=== PATIENT | female | born 1995 | race Caucasian/White ===

== ENCOUNTER → 2020-04-19 15:44 | Outpatient (CLI) | payer OTHER, SELFPAY ==
[2020-04-23 03:07] LABS: Chlamydia By Nucleic Acid AMP Negative (Negative)
[2020-04-23 06:29] LABS: Gonococcus By Nucleic Acid AMP Negative (Negative)
[2020-04-25 16:23] LABS: HPV Reflexed? NOT INDICATED
== END ==
PROVIDERS: Visit Provider Student in an Organized Health Care Education/Training Program
DX: Z32.01 Encounter for pregnancy test, result positive (principal)
CPT/HCPCS: 87491; 87591; 88175; G0145

== ENCOUNTER → 2020-04-26 14:52 | Outpatient (CLI) | payer OTHER, SELFPAY ==
[2020-04-26 16:09] LABS: Absolute Lymphocyte Count 1.88 X10^3/uL (0.83-4.51); Absolute Neutrophil Count 6.8 X10^3/uL (2.0-7.7); Basophil# 0.05 X10^3/uL; Basophil% 0.5 % (0-1); Eosinophil# 0.25 X10^3/uL; Eosinophils% 2.5 % (0-5); Hematocrit 38.4 % (37-47); Lymphocyte # 1.88 X10^3/ul (4.0); Mean Corp Hgb Conc 33.9 g/dL (32-36); Mean Corpuscular Hgb 28.8 pg (27.0-32.0); Mean Corpuscular Volume 85.1 fL (81-99); Mean Platelet Vol. 10.7 fl (6.2-12.0); Monocyte# 0.84 X10^3/uL; Monocyte% 8.5 % (0-10); NRBC Flagged by Analyzer 0 % (0-5); Neutrophil # 6.82 X10^3/uL (2.7-7.7); Neutrophil % 69.2 % (47-70); Platelet Count 271 K/mm3 (150-450); RBC Distribution Width CV 11.5 % (11.6-14.6); RBC Distribution Width SD 35.7 fl (35.1-43.9); Red Blood Count 4.51 M/mm3 (4.2-5.4); White Blood Count 9.9 K/mm3 (4.4-11.0)
[2020-04-29 09:29] LABS: HIV - WCH Non-Reactive (Nonreactive); Hepatitis B Surface Antigen Non-Reactive (Nonreactive); Hepatitis C Antibody Non-Reactive (Nonreactive); Rubella IgG Non-Reactive (Nonreactive)
[2020-05-02 02:50] LABS: Prenatal RPR NONREACTIVE (NONREACTIVE)
== END ==
PROVIDERS: Visit Provider Student in an Organized Health Care Education/Training Program
DX: Z34.81 Encounter for supervision of other normal pregnancy, first trimester (principal)
CPT/HCPCS: 36415; 85025; 86703; 86762; 86803; 87086; 87088; 87340

== ENCOUNTER → 2020-08-13 10:21 | Outpatient (CLI) | payer OTHER, SELFPAY ==
[2020-08-13 11:07] LABS: Hematocrit 32.6 % (37-47); Hemoglobin 10.7 g/dL (12.0-15.0); Mean Corp Hgb Conc 32.8 g/dL (32-36); Mean Corpuscular Hgb 30.1 pg (27.0-32.0); Mean Corpuscular Volume 91.6 fL (81-99); Mean Platelet Vol. 9.9 fl (6.2-12.0); Platelet Count 236 K/mm3 (150-450); RBC Distribution Width CV 12.8 % (11.6-14.6); RBC Distribution Width SD 42.4 fl (35.1-43.9); Red Blood Count 3.56 M/mm3 (4.2-5.4); White Blood Count 9.8 K/mm3 (4.4-11.0)
[2020-08-13 11:26] LABS: Glucose Challenge Gest 1H 50g 64 mg/dL (70-140)
== END ==
PROVIDERS: Visit Provider Student in an Organized Health Care Education/Training Program
DX: Z34.82 Encounter for supervision of other normal pregnancy, second trimester (principal)
CPT/HCPCS: 36415; 82950; 85027

== ENCOUNTER → 2020-10-01 | Outpatient (CLI) | payer SELFPAY ==
[2021-10-01 14:23] LABS: Amphetamine Urine VISTA NEGATIVE (<1000 ng/mL); Barbiturate Urine VISTA NEGATIVE (< 200 ng/mL); Benzodiazepine Urine VISTA NEGATIVE (< 200 ng/mL); Cocaine Urine VISTA NEGATIVE (< 300 ng/mL); Ecstacy Urine VISTA NEGATIVE (< 500 ng/mL); Methadone Urine VISTA NEGATIVE (< 300 ng/mL); PCP Urine VISTA NEGATIVE (< 25 ng/mL); Protein, Urine (Random) < 6.0 mg/dL (<11.9); THC Urine VISTA NEGATIVE (< 50 ng/mL); Vista UDS pH Range 6
[2021-10-04 11:08] LABS: Chlamydia By Nucleic Acid AMP Negative (Negative)
[2021-10-04 11:25] LABS: Gonococcus By Nucleic Acid AMP Negative (Negative)
== END | disposition home or self-care (01) ==
LOC: LABSPEC 10-02 06:32
PROVIDERS: PCP Family Medicine; Referring Provider Obstetrics & Gynecology; Visit Provider Obstetrics & Gynecology
DX: O09.90 Supervision of high risk pregnancy, unspecified, unspecified trimester (principal); O09.299 Supervision of pregnancy with other poor reproductive or obstetric history, unspecified trimester
CPT/HCPCS: 80307; 82570; 84156; 87086; 87088; 87491; 87591

== ENCOUNTER → 2020-11-05 11:17 | Outpatient (CLI) | payer OTHER, SELFPAY | PROVIDERS: Visit Provider Student in an Organized Health Care Education/Training Program | DX: Z36.85 Encounter for antenatal screening for Streptococcus B (principal) | CPT/HCPCS: 87081 ==

== ENCOUNTER 2020-12-05 11:30 | Inpatient (IN) | payer OTHER, SELFPAY ==
[2020-12-05] VITALS (15 sets, daily range): BP systolic 93–125; BP diastolic 52–70; PULSE 78–98; TEMP 36.7–37.7; O2SAT 96–99; BMI 27.3
[2020-12-05] MEDS: miSOPROStol 25 MCG TABLET PO (12:00)
[2020-12-05 12:04] LABS: Absolute Lymphocyte Count 1.67 X10^3/uL (0.83-4.51); Absolute Neutrophil Count 8.3 X10^3/uL (2.0-7.7); Basophil# 0.05 X10^3/uL; Basophil% 0.4 % (0-1); Eosinophil# 0.25 X10^3/uL; Eosinophils% 2.1 % (0-5); Hematocrit 35.9 % (37-47); Hemoglobin 12.1 g/dL (12.0-15.0); Lymphocyte # 1.67 X10^3/ul (0.83-4.51); Lymphocyte % 14.1 % (19-41); Mean Corp Hgb Conc 33.7 g/dL (32-36); Mean Corpuscular Hgb 29.7 pg (27.0-32.0); Mean Platelet Vol. 10.5 fl (6.2-12.0); Monocyte# 1.44 X10^3/uL; Monocyte% 12.2 % (0-10); NRBC Flagged by Analyzer 0 % (0-5); Neutrophil # 8.25 X10^3/uL (2.7-7.7); Neutrophil % 69.7 % (47-70); Platelet Count 198 K/mm3 (150-450); RBC Distribution Width CV 12.4 % (11.6-14.6); RBC Distribution Width SD 39.4 fl (35.1-43.9); Red Blood Count 4.08 M/mm3 (4.2-5.4); White Blood Count 11.8 K/mm3 (4.4-11.0)
[2020-12-05] MEDS: Lactated Ringers 1,000 ML 50 ML IV (17:10)
[2020-12-05] MEDS: Oxytocin 30 units/NS 500 ml 30 UNITS/500 ML IV.SOLN IV (17:10)
--- NOTE | 2020-12-05 18:07 | PCM.HP.OB ---
HPI - General General Date of Admission: 12/05/20 HPI Narrative 24-year-old G1, P0 at 41/1 weeks, UGO 11/27/2020 by LMP, admitted for induction of labor. Denies leaking of fluid, regular contractions, vaginal bleeding. Reports movement. Denies headache, vision changes, chest pain, shortness of breath, nausea or vomiting, fevers or chills, diarrhea or constipation. complicated by: Rubella nonimmune. PFSH PFSH Home Medications ferrous sulfate [iron] 325 mg PO DAILY 12/05/20 [History Last Taken 12/05/20] magnesium sulfate mg PO 12/05/20 [History Last Taken 12/05/20] uqsuuweq-[id number]-FA [] tab PO 12/05/20 [History Last Taken 12/05/20] Allergy/AdvReac Type Severity Reaction Status Date / Time No Known Allergies Allergy Verified 12/05/20 11:45 Social History (Updated 12/05/20 @ 18:[address] Elsie Siddiqui, DO) Smoking Status: Never smoker alcohol intake: never substance use type: does not use History 1 Elective abortions Hx Para 0 Spontaneous abortions Hx # Term Pregnancies Ectopic pregnancies Hx # Pregnancies Multiple births # of living children NST FHR Rate Baby A Baseline: 135 Variability:: Moderate Accelerations:: 15 x 15 Decelerations:: None NST Reactive:: Yes FHR Category:: Category I ROS Constitutional Constitutional: Reports systems reviewed and no addt'l complaints, except as documented Eyes Eyes: Reports systems reviewed and no addt'l complaints, except as documented ENT HEENT: Reports systems reviewed and no addt'l complaints, except as documented Cardiovascular Cardiovascular: Reports systems reviewed and no addt'l complaints, except as documented Respiratory/Chest Respiratory/Chest: Reports systems reviewed and no addt'l complaints, except as documented Gastrointestinal Gastrointestinal: Reports systems reviewed and no addt'l complaints, except as documented Genitourinary Genitourinary: Reports systems reviewed and no addt'l complaints, except as documented Musculoskeletal Musculoskeletal: Reports systems reviewed and no addt'l complaints, except as documented Integumentary Integumentary: Reports systems reviewed and no addt'l complaints, except as documented Neurologic Neurologic: Reports systems reviewed and no addt'l complaints, except as documented Psychiatric Psychiatric: Reports systems reviewed and no addt'l complaints, except as documented Endocrine Endocrinology: Reports systems reviewed and no addt'l complaints, except as documented Hematologic/Lymphatic Hematologic/Lymphatic: Reports systems reviewed and no addt'l complaints, except as documented Allergic/Immunologic Allergic/Immunologic: Reports systems reviewed and no addt'l complaints, except as documented Vital Signs Vital Signs Vital Signs: 12/05/20 11:50 12/05/20 11:51 12/05/20 11:57 Temperature 99.8 F H Temperature Source Temporal Pulse Rate 98 91 Blood Pressure 125/70 H BP Systolic 125 BP Diastolic 70 Pulse Ox 96 12/05/20 15:11 Temperature Temperature Source Pulse Rate 93 Blood Pressure 123/60 H BP Systolic 123 BP Diastolic 60 Pulse Ox Weight Weight: 72.121 kg Body Mass Index (BMI) 27.3 Physical Exam Const alert, oriented x3 and no apparent distress HEENT normocephalic Head and Scalp: atraumatic Eyes PERRL Resp normal respiratory effort and clear to auscultation bilaterally Cardio regular rate and regular rhythm GI normal to inspection, nondistended, normoactive bowel sounds Inspection: gravid Extremity normal to inspection and no pedal edema Neuro no focal motor deficits and no sensory deficits noted Psych mental status grossly normal and affect normal Labs Labs Labs: Blood Type B POSITIVE Antibody Screen NEGATIVE Hct 35.9 % (37-47) L Hgb 12.1 g/dL (12.0-15.0) Rubella IgG Antibody Non-Reactive (Nonreactive) Hep Bs Antigen Non-Reactive (Nonreactive) Neisseria gonorrhoeae DNA (ANNA) Negative (Negative) HIV 1&2 Antibody Non-Reactive (Nonreactive) Glucose 1 Hr 50 gm 64 mg/dL (70-140) L Assessment & Plan (1) Encounter for induction of labor: PLAN: 24-year-old G1 at 41/1 weeks admitted for induction of labor. Complicated by: Rubella nonimmune. For vaccination . Started with Cytotec and now on Pitocin. Routine orders. (2) Rubella non-immune status, antepartum:
[2020-12-05] MEDS: Lactated Ringers 500 ML 999 ML IV (23:13)
[2020-12-06] VITALS (46 sets, daily range): BP systolic 93–129; BP diastolic 52–85; PULSE 68–100; RESP 18; TEMP 36.2–37.8; O2SAT 97–100
[2020-12-06] MEDS: fentaNYL 100 MCG/2 ML Ampul IV (06:05)
[2020-12-06] MEDS: Lactated Ringers 500 ML 999 ML IV ×3 (06:05→13:50)
[2020-12-06] MEDS: Lactated Ringers 1,000 ML 200 ML IV (11:00)
[2020-12-06] MEDS: fentaNYL-bupivacaine (epidural) 100 ML BAG EPIDURAL (11:01)
[2020-12-06] MEDS: Oxytocin 30 units/NS 500 ml 30 UNITS/500 ML IV.SOLN 334 UNITS IV (15:55)
--- NOTE | 2020-12-06 16:41 | EX.PCM.OBRPT ---
Vaginal Delivery Maternal Presentation Maternal Presentation: Elective Induction Operative Information Date of Procedure: 12/06/20 Pre-Operative Diagnosis: Donovan intrauterine Post-Operative Diagnosis: Donovan intrauterine Surgery / Procedure Performed: Spontaneous Vaginal Delivery Type of Anesthesia: Epidural Estimated Blood Loss: 500cc Findings Description of Procedure: Spontaneous vaginal delivery of viable female. No nuchal cord. Baby to mom. Cord clamped and cut. Spontaneous delivery of placenta. Bilateral labial lacerations repaired in the usual fashion. Bilateral sulcal tears repaired in the usual fashion. Hemostatic. EBL 500cc. (1 minute): 8 (5 minute): 9
[2020-12-06] MEDS: Acetaminophen 500 MG Tablet 1000 MG PO (17:31)
[2020-12-06] MEDS: 0.9% Saline Lock 10 ML Syringe IV (18:40)
--- NOTE | 2020-12-06 20:35 | NURSING ---
BL labial and BL succal tear noted.
[2020-12-06] MEDS: Ibuprofen 600 MG Tablet PO (21:14)
--- NOTE | 2020-12-06 23:46 | NURSING ---
Report given to Tosin VIZCARRA, taking over pt and care at this time.
[2020-12-07] VITALS (9 sets, daily range): BP systolic 107–120; BP diastolic 54–80; PULSE 72–93; RESP 14–18; TEMP 36.2–36.9; O2SAT 97–99
[2020-12-07] MEDS: Acetaminophen 500 MG Tablet 1000 MG PO ×3 (00:13→16:28)
--- NOTE | 2020-12-07 01:29 | NURSING ---
bilateral sulcul and labial tears
[2020-12-07] MEDS: Ibuprofen 600 MG Tablet PO ×2 (06:22→12:50)
[2020-12-07] MEDS: Dibucaine 30 GM Tube 1 APPLIC TOPICAL (09:43)
--- NOTE | 2020-12-07 09:43 | PCM.PN.OB ---
Subjective Subjective day 1. Feeling well. Bottom is sore, mostly tailbone. Lochia minimal. Breast-feeding with some soreness. this morning. Has seen this morning. Objective Data Objective Data Vital Signs: Vital Signs Temp Pulse Resp BP Pulse Ox 97.1 F L 85 16 107/59 L 98 12/07/20 08:26 12/07/20 08:26 12/07/20 08:26 12/07/20 08:26 12/07/20 08:26 Oxygen Delivery Method Room Air Weight: 72.121 kg Body Mass Index (BMI) 27.3 Intake & Output: Intake and Output for Last 24 Hours 12/05/20 12/06/20 12/07/20 23:59 23:59 23:59 Intake Total 1223.50 / 1223.50 3701.50 / 3701.50 Output Total 750 / 1150 2325 / 2325 400 / 400 Balance 473.50 / 73.50 1376.50 / 1376.50 -400 / -400 Lab / Micro Data Result Diagrams: 12/05/20 11:45 Physical Exam Const alert, oriented x3 and no apparent distress HEENT normocephalic Head and Scalp: atraumatic Neck full ROM Resp normal respiratory effort Cardio regular rate GI normal to inspection, nondistended, normoactive bowel sounds GI Narrative: Uterus 2 cm below umbilicus Extremity normal to inspection and no pedal edema Skin no rashes or lesions noted Psych mental status grossly normal and affect normal Assessment & Plan (1) state: PLAN: 24-year-old day 1 status post . Patient recovering well. Breast-feeding. Rubella nonimmune, MMR vaccine offered, will need follow-up with primary care. Home today. (2) Vaginal delivery:
--- NOTE | 2020-12-07 09:45 | PCM.DC ---
Discharge Instructions Diet Discharge Diet: No restrictions Activity Discharge Activity: Return to Normal Activity and May Shower May resume sexual activity in: 4-6 weeks Lifting Restrictions: 20-25 lbs Dressing / Incision Call your doctor if you observe: Fever of 101 or Higher, Using more than 1 pad per hour, Shortness of breath, Dizziness, Fainting spells, Swelling in the ankles, Chest pain and Calf discomfort Cleanse incision/area with: Soap & Water Follow Up Care Please Follow Up With: Elsie Siddiqui DO When: 2 week Telehealth, 6 week Test Results: Test results from this visit will be discussed in further detail at your follow-up appointment, if applicable. Discharge Plan Admission Admit Date/Time: 12/05/20 11:30 Primary Reason for Your Visit: Labor Attending Provider: Elsie Siddiqui Primary Care Provider: Avtar Wheeler Instructions Patient Instructions: After a Vaginal , Breastfeed Holds, After Delivery [place] Concerns, Breast Care After , , : Caring for Yourself Discharge Orders/Prescriptions Prescriptions: No Action ferrous sulfate [iron] 325 mg (65 mg iron) Tablet 325 mg PO DAILY RF: 0 1 mg Tablet PO RF: 0 magnesium sulfate 100 mg Capsule PO RF: 0 Referrals / Follow Up: Avtar Wheeler DO [Primary Care Provider] - Disposition Disposition (needs filled in before D/C Order can be placed): Home, Self Care
[2020-12-07] MEDS: Senna/Docusate Sodium 1 Tablet PO (12:50)
--- NOTE | 2020-12-07 13:13 | NURSING ---
Report given to Mari Arriaza RN. She will assume care of patient at this time.
== END 2020-12-07 18:55 | disposition home or self-care (01) | DRG 807 ==
PROVIDERS: Obstetrics & Gynecology; Admitting Provider Student in an Organized Health Care Education/Training Program; PCP Family Medicine; Referring Provider Student in an Organized Health Care Education/Training Program; Visit Provider Student in an Organized Health Care Education/Training Program
DX: O70.0 First degree perineal laceration during delivery (principal); Z37.0 Single live birth; Z3A.41 41 weeks gestation of pregnancy
CPT/HCPCS: 59025; 59050; 85025; 86850; 86900; 86901; 99218; J7120; A4216; G0378

== ENCOUNTER → 2021-11-21 | Outpatient (CLI) | payer SELFPAY ==
--- NOTE | 2021-11-21 12:30 | US_ITS ---
STUDY: SECOND AND THIRD TRIMESTER OBSTETRICAL ULTRASOUND REASON FOR EXAM: Female, 25 years old anatomy LMP: 07/11/2021 TECHNIQUE: Transabdominal and Transvaginal TECHNICAL QUALITY: Adequate. PRIOR ULTRASOUND: None. FINDINGS: There is a single intrauterine fetus. The fetus is in a breech presentation. There is demonstrated cardiac activity with a heart rate of 155 bpm. There is a normal amniotic fluid volume. The largest amniotic fluid pocket measures 7.7 cm. The amniotic fluid index (MARIO) is cm. The placenta is anterior in location and is not low lying. There are Grade 0 placental changes. The cervix measures 4.0 cm in length. BIOMETRY: BPD: 4.4 cm: 19 weeks, 1 days HC: 16.0 cm: 18 weeks, 5 days AC: 13.3 cm: 18 weeks, 5 days FL: 2.8 cm: 18 weeks, 4 days CI: 79.72 FL/BPD: 65.18 FL/HC: 17.76 FL/AC: 21.38 HC/AC: 1.20 age by current US: 18 weeks, 6 days. UGO by current US: 04/18/2022. Estimated weight: 258 grams, +/- 39 grams, 34 %. Age by LMP: 19 weeks, 0 days. UGO by LMP: 04/17/2022. ANATOMY: Gender: Male Cranium: Normal lateral ventricles. Normal choroid plexus. Normal cerebellum. Normal cisterna magna. Normal face, nose and lips. Chest: Normal 4-chamber heart. Abdomen/Pelvis: Normal diaphragm. Normal stomach. Normal abdominal wall. Normal cord insertion. Normal 3 vessel cord. Normal kidneys. Normal bladder. Spine: Normal cervical spine. Normal thoracic spine. Normal lumbar spine. Normal sacrum. Extremities: Normal bilateral upper extremities. Normal bilateral lower extremities. US/OB Anatomy Scan IMPRESSION: Living intrauterine of 18 weeks 6 days as described above. Electronically Signed: Ronnie Scott MD at 7:11 EDT , Refer to transabdominal and transvaginal OB ultrasound. Electronically Signed: Ronnie Scott MD at 7:12 EDT ,
== END | disposition home or self-care (01) ==
LOC: OPUS 12:29
PROVIDERS: PCP Family Medicine; Referring Provider Obstetrics & Gynecology; Visit Provider Obstetrics & Gynecology
DX: O09.90 Supervision of high risk pregnancy, unspecified, unspecified trimester (principal); Z3A.00 Weeks of gestation of pregnancy not specified
CPT/HCPCS: 76805; 76817

== ENCOUNTER → 2022-01-26 | Outpatient (CLI) | payer SELFPAY ==
[2022-01-26 14:19] LABS: Glucose Challenge Gest 1H 50g 120 mg/dL (70-140)
== END | disposition home or self-care (01) ==
LOC: LAB 13:21
PROVIDERS: PCP Family Medicine; Referring Provider Obstetrics & Gynecology; Visit Provider Obstetrics & Gynecology
DX: O09.90 Supervision of high risk pregnancy, unspecified, unspecified trimester (principal); Z3A.00 Weeks of gestation of pregnancy not specified
CPT/HCPCS: 36415; 82950; 86900; 86901

== ENCOUNTER → 2022-03-26 | Outpatient (CLI) | payer SELFPAY | END | disposition home or self-care (01) | LOC: LABSPEC 14:41 | PROVIDERS: PCP Family Medicine; Visit Provider Obstetrics & Gynecology | DX: O09.90 Supervision of high risk pregnancy, unspecified, unspecified trimester (principal); Z3A.00 Weeks of gestation of pregnancy not specified | CPT/HCPCS: 87081 ==

== ENCOUNTER 2022-04-24 07:22 | Inpatient (IN) | payer SELFPAY ==
[2022-04-24] VITALS (47 sets, daily range): BP systolic 106–134; BP diastolic 57–88; PULSE 8–105; RESP 16; TEMP 36.1–36.7; O2SAT 91–100; BMI 29.1
[2022-04-24] MEDS: Lactated Ringers 1,000 ML 50 ML IV (08:05)
[2022-04-24 08:29] LABS: Absolute Lymphocyte Count 2.05 X10^3/uL (0.83-4.51); Absolute Neutrophil Count 7.2 X10^3/uL (2.0-7.7); Basophil# 0.04 X10^3/uL; Basophil% 0.4 % (0-1); Eosinophil# 0.24 X10^3/uL; Eosinophils% 2.2 % (0-5); Hematocrit 31.4 % (37-47); Hemoglobin 10.7 g/dL (12.0-15.0); Lymphocyte # 2.05 X10^3/ul (0.83-4.51); Lymphocyte % 19.2 % (19-41); Mean Corp Hgb Conc 34.1 g/dL (32-36); Mean Corpuscular Hgb 28.2 pg (27.0-32.0); Mean Corpuscular Volume 82.8 fL (81-99); Mean Platelet Vol. 10.5 fl (6.2-12.0); Monocyte% 8.4 % (0-10); NRBC Flagged by Analyzer 0 % (0-5); Neutrophil # 7.22 X10^3/uL (2.7-7.7); Neutrophil % 67.6 % (47-70); Platelet Count 216 K/mm3 (150-450); RBC Distribution Width SD 41.4 fl (35.1-43.9); Red Blood Count 3.79 M/mm3 (4.2-5.4); White Blood Count 10.7 K/mm3 (4.4-11.0)
[2022-04-24] MEDS: miSOPROStol 50 MCG TABLET BUCCAL (08:33)
[2022-04-24 09:25] LABS: Rubella IgG Non-Reactive (Nonreactive); Syphilis Antibodies Non-reactive
[2022-04-24 09:38] LABS: HIV - WCH Non-Reactive (Nonreactive); Hepatitis B Surface Antigen Non-Reactive (Nonreactive); Hepatitis C Antibody Non-Reactive (Nonreactive)
[2022-04-24 10:17] LABS: Chlamydia Trachomatis by PCR Negative (Negative); Neisserai gonorrhoeae by PCR Negative (Negative); Probe Check PASS; Sample Adequacy Control PASS; Specimen Processing Control PASS
--- NOTE | 2022-04-24 11:22 | HP.PCM.OB_ITS ---
HPI - General General Date of Admission: 04/24/22 HPI Narrative ARTI LONG, is a 26 y/o @ 41 weeks who presents for induction of labor for post dates. Maternal Data Information UGO Calculator Estimated Delivery Date Method Current WG Current Estimate 04/17/22 LMP (Certain) 41w 0d Other Estimates 04/18/22 Ultrasound #1 40w 6d PFSH PFSH Medical History Vaginal delivery Home Medications [id number] 1 mg tablet 1 tab PO DAILY 12/05/20 [History Last Taken 04/24/22 06:00 1 tab] Allergy/AdvReac Type Severity Reaction Status Date / Time No Known Allergies Allergy Verified 04/24/22 08:16 Social History adopted: No household members: spouse and children number of children: 1 current occupational status: unemployed current occupation: [employer] pets and animals: No Smoking Status: Never smoker alcohol intake: never substance use type: does not use additional social history: Magdiel History 2 Elective abortions Hx Para 1 Spontaneous abortions Hx # Term Pregnancies Ectopic pregnancies Hx # Pregnancies Multiple births # of living children 1 Past Pregnancies Del. Date Name GA/Weeks Outcome Route Bth Weight Infant Gen Labor Lgth Anesthesia Del Locatn Provider FOB 12/06/20 [place] 41 live - full term 7# 2 Female 6 hr epi dural [facility] Brea Veloz Delivery Date: 12/06/20 Last Updated by: Mary Boyd MANAGER CAFE, MANAGER CAFE-C IOL Pre E and post dates Visit Details Expected Delivery Route/Plan Labor Preferences- CB/BF classes: no labor support person: Magdiel labor intervention preferences: [] pain management options preferred: epidural cut cord/dad catch: cord : yes PP control planned: discussed Considering IUD discussed possible routes of delivery and associated risks: [] special requests: [] Plans Covid status: discussed Flu vaccine: discussed Tdap vaccine: declines Rhogam: na LARC form signed: yes Problem list reviewed and updated with the most current plan of care details and appropriate orders placed. Relevant counseling for the gestational age provided. Continue routine care and follow up unless otherwise noted in visit notes/problem list details OB Flowsheet Initial Weight: Not Recorded Date -?-?-?-?-?-?-?-?-?-?-?-?- EGA Weight BP Urine Prot -?-?-?-?-?-?-?-?-?-?-?-?- Glucose FHR FuHt Pres Dilation -?-?-?-?-?-?-?-?-?-?-?-?- Effaced St Visit Note 10/01/21 -?-?-?-?-?-?-?-?-?-?-?-?- 11w 5d 148 lb 6 oz 104/80 -?-?-?-?-?-?-?-?-?-?-?-?- 168 -?-?-?-?-?-?-?-?-?-?--?-?- JV- CRL consiste nt with LMP 10/31/21 -?-?-?-?-?-?-?-?-?-?-?-?- 16w 0d 147 lb 2 oz 112/78 Nega tive -?-?-?-?-?-?-?-?-?-?-?-?- Negative 150 -?-?-?-?-?-?-?-?-?-?-?-?- JV- no lof, vagi nal bleeding, or cramping. pt is feeling movement. anatomy ultrasound scheduled with the hospital due to lack of insurance 11/28/21 -?-?-?-?-?-?-?-?-?-?-?-?- 20w 0d 146 lb 110/68 Negative -?-?-?-?-?-?-?-?-?-?-?-?- Negative 156 -?-?-?-?-?-?-?-?-?-?-?-?- JV- no lof, vagi nal bleeding, and + FM. anatomy scan was normal with anterior placenta. no complaints 12/26/21 -?-?-?-?-?-?-?-?-?-?-?-?- 24w 0d 150 lb 107/65 -?-?-?-?-?-?-?-?-?-?-?-?- 150 -?-?-?-?-?-?-?-?-?-?-?-?- SM- no vb lof go od fm n oregular ctx 01/26/22 -?-?-?-?-?-?-?-?-?-?-?-?- 28w 3d 156 lb 2 oz 108/62 Nega tive -?-?-?-?-?-?-?-?-?-?-?-?- Negative 154 27 -?-?-?-?-?-?-?-?-?-?-?-?- MH-No VB, LOF. G ood FM. Declines tdap. 28 wk labs and larc done. 02/10/22 -?-?-?-?-?-?-?-?-?-?-?-?- 30w 4d 157 lb 4 oz 116/70 Nega tive -?-?-?-?-?-?-?-?-?-?-?-?- Negative 134 29 -?--?-?-?-?-?-?-?-?-?-?-?- JV- no lof, v ag inal bleeding, or dec fm. normal GCT 03/10/22 -?-?-?-?-?-?-?-?-?-?-?-?- 34w 4d 164 lb 116/68 Negative -?-?-?-?-?-?-?-?-?--?-?-?- Negative 135 33 -?-?-?-?-?-?-?-?-?-?-?-?- SM- no vb lof go od fm no reuglar ctx 03/26/22 -?-?-?-?-?-?-?-?-?-?-?-?- 36w 6d 164 lb 6 oz 118/79 Nega tive -?-?-?-?-?-?-?-?-?-?-?-?- Negative 155 36 Cephalic 1 .5 -?-?-?-?-?-?-?-?-?-?-?-?- 60 -2 JV- no lof , vaginal bleedign or dec fm. gbs collected 04/01/22 -?-?-?-?-?-?-?-?-?-?-?-?- 37w 5d 169 lb 2 oz 136/79 Nega tive -?-?-?-?-?-?-?-?-?-?-?-?- Negative 146 38 Cephalic 1 .5 -?-?-?-?-?-?-?-?-?-?-?-?- 60 -2 LC-no lof, vb,ctx.lots of FM. gbs negative. no concerns.to start EPO. 04/08/22 -?-?-?-?-?-?-?-?-?-?-?-?- 38w 5d 170 lb 116/70 -?-?-?-?-?-?-?-?-?-?-?-?- 140 38 Cephalic 2 -?-?-?-?-?-?-?-?-?-?-?-?- 70 -2 LC-no lob, vb, ctx. good FM. no concerns. 04/14/22 -?-?-?--?-?-?-?-?-?-?-?-?- 39w 4d 170 lb 2 oz 130/75 Nega tive -?-?-?-?-?-?-?-?-?-?-?-?- Negative 145 37 Cephalic 2 -?-?-?-?-?-?-?-?-?-?-?-?- 70 -2 JV- no lof , vaginal bleeding ,or dec fm. fundal height dropped slightly. planing for 41 week IOL or sooner if fundal heights continue to drop will re- scan. 04/22/22 -?-?-?-?-?-?-?-?-?-?-?-?- 40w 5d 168 lb 124/78 -?-?-?-?-?-?-?-?-?-?-?-?- 140 39 Cephalic 3 -?-?-?-?-?-?-?-?-?-?-?-?- 80 -2 LC-no lof, vb,ctx. good FM. membranes striped today. having right hip pain. stretches and comfort techniques reviewed.IOL scheduled for wednesday at 11am. ROS Constitutional Constitutional: Denies change in weight, fatigue, fever(s), headache(s), poor appetite or weakness Eyes Eyes: Denies blurry vision, change in vision, seeing flashes or spots in vision ENT HEENT: Denies dizziness, headache(s), loss taste/smell or sore throat Cardiovascular Cardiovascular: Denies chest pain, dizziness, dyspnea, irregular heart rhythm, leg edema, palpitations, rapid heart rate or vomiting Respiratory/Chest Respiratory/Chest: Denies chest tightness, cough, dyspnea or breast pain Gastrointestinal Gastrointestinal: Denies abdominal pain, anorexia, constipation, cramping, diarrhea, hemorrhoids, vomiting or weight changes Genitourinary Genitourinary: Denies dysuria, flank pain, genital lesions, genital pain, urinary frequency or urinary urgency Musculoskeletal Musculoskeletal: Denies back pain, difficulty walking, joint pain, limited range of motion, muscle cramps or numbness Integumentary Integumentary: Denies lesions or unusual bruising Neurologic Neurologic: Denies abnormal movements, abnormal speech, dizziness, numbness, seizure-like activity or syncope Psychiatric Psychiatric: Denies anxiety, behavioral changes, change in appetite, change in libido, cognitive impairment, confusion, depression, difficulty concentrating, hallucinations or suicidal thoughts Endocrine Endocrinology: Denies excessive sweating, polydipsia or polyuria Hematologic/Lymphatic Hematologic/Lymphatic: Denies easy bleeding, easy bruising or lymphadenopathy Allergic/Immunologic Allergic/Immunologic: Denies itchy eyes, lip swelling, seasonal rhinorrhea, rhinitis, throat swelling, tongue swelling, eczemia, wheezing or asthma Vital Signs Vital Signs Vital Signs: 04/24/22 07:56 04/24/22 07:57 04/24/22 07:57 Temperature Temperature Source Pulse Rate 105 H Blood Pressure 124/76 H BP Systolic 124 BP Diastolic 76 Pulse Ox 98 04/24/22 07:55 04/24/22 07:55 Temperature 97.6 F L Temperature Source Temporal Pulse Rate Blood Pressure BP Systolic BP Diastolic Pulse Ox Weight Weight: 169 lb 12.095 oz Body Mass Index (BMI) 29.1 Physical Exam Const alert, oriented x3, no apparent distress and healthy appearing General Appearance: cooperative; Negative for anxious HEENT normocephalic Face and Sinus: normal facial exam Eyes EOMs intact bilaterally and no scleral icterus General Eye: normal appearance of both eyes Neck full ROM and supple Lymph Lymphatic: no lymphadenopathy noted Chest Chest: abnormal inspection of the chest Resp normal respiratory effort Effort and Inspection: able to speak in complete sentences Cardio regular rate GI soft to palpation and non-tender Inspection: gravid Palpation: soft; Negative for tender external exam normal Amniotic Fluid: ROM+plus Back/Spine no CVA tenderness Extremity normal to inspection, full ROM and no clubbing, cyanosis or edema General Extremity: Negative for calf tenderness or edema Skin Lesions: no lesions Rashes: no rashes Psych mental status grossly normal Labs Labs Labs: Blood Type B POSITIVE Antibody Screen NEGATIVE Hct 31.4 % (37-47) L Hgb 10.7 g/dL (12.0-15.0) L Obstetrics US Syphilis Total Ab Non-reactive Rubella IgG Antibody Non-Reactive (Nonreactive) Hep Bs Antigen Non-Reactive (Nonreactive) Chlamydia DNA (ANNA) Negative (Negative) Neisseria gonorrhoeae DNA (ANNA) Negative (Negative) HIV 1&2 Antibody Non-Reactive (Nonreactive) Glucose 1 Hr 50 gm 120 mg/dL (70-140) Rhogam given: No Assessment & Plan (1) Supervision of high risk , antepartum: COMMENT: [place](Rubella, std panel at delivery) UGO:04/17/22 PC:[facility]. Spouse: Magdiel IOL 04/24/22 at 7am (2) : QUALIFIERS: Weeks of gestation: 40 weeks Qualified Code(s): Z3A.40 - 40 weeks gestation of COMMENT: GBS neg, anatomy nl, Declines NIPT/carrier testing. draw rest of NOB labs at delivery per patient request. (3) Post-dates : PLAN: Plan Patient presents IOL, plan management for with cytotec/arom and pitocin as needed . Pain management: plans epidural. GBS negative. Management of any complications: none I have reviewed the [facility] and made any clinically relevant updates.
--- NOTE | 2022-04-24 12:57 | PCM.PN.BLA ---
Progress Note pt is laying on her side sleeping. Cytotec was given at 8:30 am. current tracing: FHT: Moderate variability reactive category I tracing. one late decel present [place]: irregular Contractions cx now 380/-2, membranes ruptured and clear fluid returned reviewed tracing abnormalities since last note: no changes A/P: IOL for post dates. cytotec 50 mcg given buccaly this am. membranes ruptured. continue current management. epidural prn.
[2022-04-24] MEDS: LACTATED RINGERS 500 ML 999 ML IV (13:02)
[2022-04-24] MEDS: fentaNYL-bupivacaine (epidural) 100 ML BAG EPIDURAL (14:09)
[2022-04-24] MEDS: Oxytocin 15 Units/NS 250ml 15 UNITS/250 ML IV.SOLN 2 UNITS IV (15:17)
[2022-04-24] MEDS: Lactated Ringers 1,000 ML 200 ML IV (15:18)
--- NOTE | 2022-04-24 16:49 | OP.PCM_ITS ---
Assessment & Plan (1) Post-dates : (2) Supervision of high risk , antepartum: COMMENT: [place](Rubella, std panel at delivery) UGO:04/17/22 PC:[facility]. Spouse: Magdiel IOL 04/24/22 at 7am (3) : QUALIFIERS: Weeks of gestation: 40 weeks Qualified Code(s): Z3A.40 - 40 weeks gestation of COMMENT: GBS neg, anatomy nl, Declines NIPT/carrier testing. draw rest of NOB labs at delivery per patient request. Maternal Data Information UGO Calculator Estimated Delivery Date Method Current WG Current Estimate 04/17/22 LMP (Certain) 41w 0d Other Estimates 04/18/22 Ultrasound #1 40w 6d Final UGO: 04/17/22 Final UGO Source: LMP Gestational age: 41 weeks Vaginal Delivery Maternal Presentation Maternal Presentation: Medically Indicated Induction Type of Induction: Pitocin, Amniotomy and Cytotec Operative Information Date of Procedure: 04/24/22 Pre-Operative Diagnosis: 41 weeks , post-dates induction of labor Post-Operative Diagnosis: 41 weeks , post-dates induction of labor Surgery / Procedure Performed: Spontaneous Vaginal Delivery Type of Anesthesia: Epidural Drain: Dunn to straight drain Estimated Blood Loss: 200cc Findings Description of Procedure: Patient began pushing and delivered the head in the OA presentation. The head was delivered atraumatically. The anterior and posterior shoulders delivered without complication followed by the rest of the and the infant was placed on the maternal abdomen. Delayed cord clamping was employed for approximately 60 seconds. Cord was clamped and cut and gentle traction was applied to the cord and the placenta delivered spontaneously immediately following it was noted to be intact with three-vessel cord. The perineum and vagina were inspected and noted to have a 1st degree perineal laceration. EBL was 200cc. Patient and infant tolerated delivery well. Presentation: Vertex and DALIA Amniotic Membrane Rupture Type: Artificial Time of Membrane Rupture: 12:00 Amniotic Fluid Description: Clear Placental Delivery Description: Spontaneous Placenta Disposition: [facility] Specimen(s) Removed: placenta Cord Vessel Description: 3 Vessels Cord Entanglement: None Infant A Gender: Male (1 minute): 9 (5 minute): 9 Delayed Cord Clamping: Yes Post Vaginal Delivery Medications Given After Delivery: IV Pitocin Episiotomy Description: None Laceration: 1st degree Complication Complications: None Multi Select Codes Urinary/Genital Urinary/Genital CPT Codes: 57949 Vaginal Delivery [facility]
[2022-04-24] MEDS: 0.9% Saline Lock 10 ML Syringe IV (17:32)
--- NOTE | 2022-04-24 18:19 | NURSING ---
Pt. aware rubella status is nonimmune. Declines MMR vaccine.
[2022-04-24] MEDS: Naproxen 500 MG Tablet PO (21:43)
[2022-04-25] VITALS (10 sets, daily range): BP systolic 107–118; BP diastolic 58–74; PULSE 76–86; RESP 15–16; TEMP 36.1–36.9; O2SAT 97–98
[2022-04-25] MEDS: Acetaminophen 500 MG Tablet 1000 MG PO ×2 (02:13→12:13)
[2022-04-25] MEDS: Naproxen 500 MG Tablet PO ×2 (06:25→15:02)
--- NOTE | 2022-04-25 09:59 | PN.OBGYN_ITS ---
Subjective Subjective Patient doing well without complaints. Tolerating PO. Ambulating and voiding without difficulty. Feeding well. Denies chest pain, shortness of breath, calf pain/swelling, fevers, chills, lightheadedness. Objective Data Objective Data Vital Signs: Vital Signs Temp Pulse Resp BP Pulse Ox O2 Del Method 97.4 F L 76 16 115/74 98 Room Air 04/25/22 08:15 04/25/22 08:15 04/25/22 08:15 04/25/22 08:15 04/25/22 08:15 04/25/22 08:15 Oxygen Delivery Method Room Air Weight: 169 lb 12.095 oz Body Mass Index (BMI) 29.1 Intake & Output: Intake and Output for Last 24 Hours 04/23/22 04/24/22 04/25/22 23:59 23:59 23:59 Intake Total 1503.43 / 1503.43 500 / 500 Output Total 1400 / 1400 1800 / 1800 Balance 103.43 / 103.43 -1300 / -1300 Lab / Micro Data Result Diagrams: 04/24/22 08:05 Labs: Laboratory Results - last 24 hr 04/24/22 08:05: Chlam trachomat DNA PCR Negative, N.gonorrhoeae DNA (PCR) Negative Micro: Microbiology 04/24/22 08:10 Nasal Secretion SARS-CoV-2 Antigen (Rapid) - Final ROS Constitutional Constitutional: Denies chills, fatigue, fever(s), poor appetite or weakness Eyes Eyes: Denies blurry vision, change in vision, seeing flashes or spots in vision ENT HEENT: Denies dizziness, headache(s), loss taste/smell or sore throat Cardiovascular Cardiovascular: Denies chest pain, dizziness, dyspnea, irregular heart rhythm, palpitations or rapid heart rate Respiratory/Chest Respiratory/Chest: Denies chest tightness, cough, dyspnea or breast pain Gastrointestinal Gastrointestinal: Denies abdominal pain, constipation or vomiting Genitourinary Genitourinary: Denies dysuria or flank pain Musculoskeletal Musculoskeletal: Denies difficulty walking, joint pain, limited range of motion or numbness Neurologic Neurologic: Denies abnormal movements, abnormal speech, dizziness, numbness, s eizure-like activity or syncope Psychiatric Psychiatric: Denies anxiety, behavioral changes, change in appetite, confusion, depression or suicidal thoughts Physical Exam Const alert, oriented x3 and no apparent distress General Appearance: cooperative and comfortable Resp normal respiratory effort Cardio regular rate GI normal to inspection, nondistended, normoactive bowel sounds GI Narrative: uterus is firm below umbilicus Palpation: soft Back/Spine no CVA tenderness and thoraco-lumbar ROM normal Extremity normal to inspection, no clubbing, cyanosis or edema, no calf tenderness and no pedal edema Psych mental status grossly normal, thought process normal, cooperative, affect normal, speech normal, activity/motor behavior normal, denies homicidal ideation and denies suicidal ideation Assessment & Plan (1) Post-dates : (2) Supervision of high risk , antepartum: COMMENT: ME(Rubella, std panel at delivery) UGO:04/17/22 PC:[place]. Spouse: Mgadiel XANDER 04/24/22 at 7am (3) : QUALIFIERS: Weeks of gestation: 40 weeks Qualified Code(s): Z3A.40 - 40 weeks gestation of COMMENT: GBS neg, anatomy nl, Declines NIPT/carrier testing. draw rest of NOB labs at delivery per patient request. PLAN: Plan s/p PPD # 1 1. routine post delivery care 2. breast feeding- support given 3. rh positive 4. rubella immune 5. plan for dc to home today
--- NOTE | 2022-04-25 10:00 | DCINST_ITS ---
Discharge Instructions Diet Discharge Diet: No restrictions Activity Discharge Activity: Return to Normal Activity, May Not Drive (while taking narcotic pain medications.) and May Shower May resume sexual activity in: 4-6 weeks Dressing / Incision Call your doctor if your incision/area has: Continuous Slow Oozing, Sudden Increased Bleeding, Increased Pain/ Swelling, Increased Redness and Foul Smelling Discharge Follow Up Care Please Follow Up With: Francisca Trejo DO When: Call [phone] to make an appointment with your doctor in 6 weeks. If you had elevated blood pressure or 4th degree laceration, you will need to be seen in 2 weeks. Test Results: Test results from this visit will be discussed in further detail at your follow- up appointment, if applicable. Discharge Plan Admission Admit Date/Time: 04/24/22 07:22 Primary Reason for Your Visit: vaginal delivery Attending Provider: Francisca Trejo Primary Care Provider: Avtar Wheeler Discharge Orders/Prescriptions Prescriptions: No Action 1 mg Tablet 1 tab PO DAILY Referrals / Follow Up: Avtar Wheeler DO [Primary Care Provider] - Disposition Disposition (needs filled in before D/C Order can be placed): Home, Self Care
== END 2022-04-25 17:57 | disposition home or self-care (01) | DRG 807 ==
PROVIDERS: Admitting Provider Obstetrics & Gynecology; PCP Family Medicine; Referring Provider Obstetrics & Gynecology; Visit Provider Obstetrics & Gynecology
DX: O48.0 Post-term pregnancy (principal); Z37.0 Single live birth; O70.0 First degree perineal laceration during delivery; Z3A.41 41 weeks gestation of pregnancy; O76 Abnormality in fetal heart rate and rhythm complicating labor and delivery
CPT/HCPCS: 59025; 59050; 85025; 86703; 86762; 86780; 86803; 86850; 86900; 86901; 87340; 87426; 87491; 87591; 99218; J7120; A4216; G0378